=== PATIENT | female | born 1960 | race Caucasian/White ===

== ENCOUNTER → 2024-10-28 | Outpatient (CLI) | payer BC ==
--- NOTE | 2024-10-28 09:37 | CT ---
EXAMINATION TYPE: CT left knee - AMBAR Protocol DATE OF EXAM: 10/28/2024 9:17 AM COMPARISON: None. CLINICAL INDICATION: Female, 64 years old with history of M17.12 UNILATERAL PRIMARY OSTEOARTHRITIS, L EFT KNE; PHH, Pre op planning, pain, TECHNIQUE: Axial images were obtained of the bilateral hips, knee and bilateral ankles: CT left knee - AMBAR Protocol, Additional coronal and sagittal reformatted images and soft tissue and bone window were obtained for review of the bilateral hips, knee and bilateral ankles. Contrast used: mL of , (None if empty) Oral contrast used: (None if empty) CT DLP: 757 mGycm, Automated exposure control for dose reduction was used. FINDINGS: The visualized portion of the hips demonstrate mild osteoarthrosis changes with osteophyte formation of the acetabulum. No acute intrapelvic process. The bony structures of the pelvis are intact. The visualized knee demonstrates osteophyte formation of the tibial plateau, the patella and femoral condyles. There is joint space narrowing and subchondral sclerosis and cystic change. No evidence of fracture. Findings worse in the medial aspect of the knee The visualized ankles demonstrates multifocal osteoarthrosis changes with osteophyte formation and mi ld joint space narrowing. No evidence of fractures. Other: No significant findings. IMPRESSION: Severe osteoarthrosis changes of the left knee. [facility], , 10/28/2024 9:35 AM
== END | disposition home or self-care (01) ==
LOC: RADCTMAIN 08:30
PROVIDERS: ATTEND Orthopaedic Surgery
DX: Z01.818 Encounter for other preprocedural examination (principal); M17.12 Unilateral primary osteoarthritis, left knee

== ENCOUNTER → 2024-11-18 | Outpatient (CLI) | payer BC ==
[2024-11-18 10:53] LABS: INR 0.9 (<1.2)
[2024-11-18 14:46] LABS: HCT 36.2 % (37.2-46.3); HGB 11.1 g/dL (12.0-15.0); MCHC 30.7 g/dL (32.0-37.0); MCV 84.8 FL (80.0-97.0); Mean Platelet Volume 9.8 FL (9.5-12.2); NRBC Per 100 WBC 0 X 10*3/uL (0.00-0.01); Platelet Count 418 X 10*3/uL (140-440); RBC 4.27 X 10*6/uL (4.10-5.20); RDW 14.9 % (11.5-14.5); WBC 9.33 X 10*3/uL (4.50-10.00)
[2024-11-18 14:52] LABS: ALT 11 U/L (8-44); AST 17 U/L (13-35); Albumin 4.1 g/dL (3.8-4.9); Albumin/Globulin Ratio 1.46 Ratio (1.60-3.17); Alkaline Phosphatase 122 U/L (41-126); BUN/Creat Ratio 14.25 Ratio (12.00-20.00); Blood Urea Nitrogen 11.4 mg/dL (9.0-27.0); Calcium 9.3 mg/dL (8.7-10.3); Carbon Dioxide 22.1 mmol/L (21.6-31.8); Chloride 108 mmol/L (96-109); Globulin 2.8 g/dL (1.6-3.3); Glucose 141 mg/dL (70-110); Potassium 4.3 mmol/L (3.5-5.5); Sodium 142 mmol/L (135-145); Total Bilirubin 0.3 mg/dL (0.3-1.2); Total Protein 6.9 g/dL (6.2-8.2)
== END | disposition home or self-care (01) ==
LOC: LABWHC1 10:16
PROVIDERS: ATTEND Orthopaedic Surgery
DX: Z01.818 Encounter for other preprocedural examination (principal); Z22.322 Carrier or suspected carrier of Methicillin resistant Staphylococcus aureus; E11.9 Type 2 diabetes mellitus without complications; M17.12 Unilateral primary osteoarthritis, left knee
CPT/HCPCS: 36415; 80053; 83036; 85027; 85610; 85730; 87070; 93005

== ENCOUNTER 2024-12-03 07:56 | Day surgery (SDC) | payer BC ==
[~2024-12-03 07:56] MED LIST: DOCUSATE 100 MG CAP PO PRN; TRANEXAMIC 1,000 MG/100ML-NACL 1,000 MG in SALINE 1 100ML.BAG IV PRN; TRANEXAMIC 1,000 MG/100ML-NACL 1,000 MG in SALINE 1 100ML.BAG IVPB PRN; oxyCODONE ER 10 MG TAB.ER.12H PO PRN
[2024-12-03] MEDS: IV FLUID CONTINUATION 1,000 ML IV ONE ×2 (08:24)
[2024-12-03 08:39] LABS: Glucose,Whole Blood 112 mg/dL (70-110)
[2024-12-03] MEDS: LACTATED RINGERS 1,000 ML IV SCH (08:47)
[2024-12-03] MEDS: ACETAMINOPHEN TAB 500 MG TAB PO PRN (08:47)
[2024-12-03] MEDS: KETOROLAC 15 MG/ML 1 ML VIAL IVP PRN (08:48)
[2024-12-03] MEDS: DEXAMETHASONE SOD PHOSPHATE 10 MG/ML 1 ML VIAL IV PRN (08:49)
[2024-12-03] MEDS: ONDANSETRON 4 MG/2 ML VIAL IVP PRN (08:49)
[2024-12-03] MEDS: FAMOTIDINE 20 MG/2 ML VIAL IVP PRN (08:49)
[2024-12-03] MEDS: MIDAZOLAM 2 MG/2 ML VIAL IV PRN (08:55)
[2024-12-03] MEDS: fentaNYL (PF) 50 MCG/ML 2 ML AMP IVP PRN (08:55)
[2024-12-03] MEDS ORDERED: HYDROmorphone (PF) 1 MG/ML ONE (09:50)
[2024-12-03] MEDS ORDERED: PROPOFOL 10 MG/ML 20 ML VIAL IV ONE (09:50)
[2024-12-03] MEDS ORDERED: ROPIVACAINE 5 MG/ML 30 ML VIAL ONE (09:50)
[2024-12-03] MEDS ORDERED: NEOSTIGMINE 1 MG/ML 10 ML VIAL ONE (09:50)
[2024-12-03] MEDS ORDERED: LIDOCAINE 1% INJ 10MG/ML (20 ML MDV) ONE (09:50)
[2024-12-03] MEDS ORDERED: DEXAMETHASONE SOD PHOSPHATE 4 MG/ML 1 ML VIAL ONE (09:50)
[2024-12-03] MEDS ORDERED: TRANEXAMIC 1,000 MG/100ML-NACL PREMIX BAG ONE (09:50)
[2024-12-03] MEDS ORDERED: PHENYLEPHRINE-0.9% NACL SYG 1,000 MCG/10 ML SYRINGE ONE (09:50)
[2024-12-03] MEDS ORDERED: SUCCINYLCHOLINE CHLORIDE 200 MG/10 ML VIAL IV ONE (09:50)
[2024-12-03] MEDS ORDERED: MIDAZOLAM 2 MG/2 ML VIAL ONE (09:50)
[2024-12-03] MEDS ORDERED: ROCURONIUM 10 MG/ML (5 ML VIAL) IV ONE (09:50)
[2024-12-03] MEDS ORDERED: GLYCOPYRROLATE 0.2 MG/ML 2 ML VIAL ONE (09:50)
[2024-12-03] MEDS ORDERED: fentaNYL (PF) 50 MCG/ML 2 ML AMP ONE (09:50)
[2024-12-03] MEDS: ceFAZolin 2 GM in DEXTROSE 5% IN WATER 50 ML IVPB PRN (09:55)
--- NOTE | 2024-12-03 09:57 | P.ANPRN ---
Procedure Note - Anesthesia - Nerve Block Performed Left iPack Single Time Out Performed: Yes Date of Procedure: 12/03/24 Procedure Start Time: 08:54 Procedure Stop Time: 08:58 Location of Patient: PreOp Indication: Acute Post-Operative Pain, Analgesia, Requested by Surgeon Sedation Type: Sedate with meaningful contact maintained Preparation: Sterile Prep Position: Right Lateral Catheter: None Needle Types: Pajunk Needle Gauge: 21 Ultrasound used to visualize needle placement: Yes Ultrasound used to observe medication spread: Yes Injectate: 0.5% Ropivacaine (see comment for volume) ([id number]) Blood Aspirated: No Pain Paresthesia on Injection Noted: No Resistance on Injection: Normal Image Stored and Saved: Yes Events: Uneventful and Well Tolerated
--- NOTE | 2024-12-03 09:58 | P.ANPRN ---
Procedure Note - Anesthesia - Nerve Block Performed Left Adductor Canal Single Time Out Performed: Yes Date of Procedure: 12/03/24 Procedure Start Time: 08:58 Procedure Stop Time: 09:03 Location of Patient: PreOp Indication: Acute Post-Operative Pain, Analgesia, Requested by Surgeon Sedation Type: Sedate with meaningful contact maintained Preparation: Sterile Prep Position: Supine Catheter: None Needle Types: Pajunk Ultrasound used to visualize needle placement: Yes Ultrasound used to observe medication spread: Yes Injectate: 2.0% Lidocaine (see comment for volume) ([id number]) Blood Aspirated: No Pain Paresthesia on Injection Noted: No Resistance on Injection: Normal Image Stored and Saved: Yes Events: Uneventful and Well Tolerated
[2024-12-03] MEDS: ROPIVACAINE/EPI/CLONIDINE/KET 50 ML SYRINGE MISCELLANE PRN (10:30)
[2024-12-03] MEDS: LACTATED RINGERS 1,000 ML IV ONE (11:33)
[2024-12-03] MEDS ORDERED: MAGNESIUM HYDROXIDE 2,400 MG/30 ML CUP PO PRN (11:34)
[2024-12-03] MEDS ORDERED: hydrOXYzine pamoate 25 MG CAP PO PRN (11:34)
[2024-12-03] MEDS ORDERED: ONDANSETRON 4 MG/2 ML VIAL IVP PRN (11:34)
[2024-12-03] MEDS ORDERED: bisacodyL 10 MG SUPP RECTAL PRN (11:34)
[2024-12-03] MEDS ORDERED: HYDROmorphone 0.5 MG/0.5 ML SYRINGE IVP PRN ×2 (11:34)
[2024-12-03] MEDS ORDERED: NALOXONE 0.4 MG/ML 1 ML VIAL IV PRN (11:34)
[2024-12-03] MEDS ORDERED: diazePAM 5 MG TAB PO PRN (11:34)
[2024-12-03] MEDS ORDERED: NA PHOS,M-B/NA PHOS,DI-BA 133 ML ENEMA RECTAL PRN (11:34)
--- NOTE | 2024-12-03 11:34 | P.OP ---
Date of Procedure: 12/03/24 Preoperative Diagnosis: Severe left knee osteoarthritis Postoperative Diagnosis: Same Procedure(s) Performed: 1. Left total knee arthroplasty 2. Computer assisted musculoskeletal navigation using CT/MRI images Implants: 1. [place] Triathlon CR Femur Size #2 2. [place] Triathlon [place] Tibial Base Size #2 3. [place] Triathlon CS poly Size #2, 9-mm 4. [place] Triathlon all poly patella, Size #32 Anesthesia: BRADLY, regional Surgeon: Joel Hester [employer] Finance Manager #1: Danny Latham Estimated Blood Loss (ml): 100 IV fluids (ml): 800 Pathology: none sent Condition: stable Disposition: PACU Indications for Procedure: I met with the patient preoperatively in the office setting and discussed treatment of their symptomatic knee arthritis. They failed a long course of nonsurgical treatment and elected to proceed with an elective total knee replacement. I discussed the potential risks and complications at length and gave them ample time to ask questions. Risks discussed included: risks from an esthesia, superficial site surgical infection, acute and/or chronic periprosthetic joint infection, delayed wound healing, drainage, wound necrosis, instability, stiffness, stiffness requiring manipulation and/or revision surgery, damage to local blood vessels or nerves, aseptic loosening of the implants, extensor mechanism issues including disruption, patellar maltracking, avascular necrosis etc., continued or worsened knee pain, generalized dissatisfaction with surgical outcome, need for revision surgery, an inability to regain preinjury level of function, DVT, PE, other medical complications, and possibly loss of life or limb. The patient voiced their understanding that while these are the most common complications other less common complications are possible. They provided both their verbal and written consent to go forward with surgery. Operative Findings: There was severe full-thickness cartilage loss in the medial and patellofemoral compartment. Partial-thickness cartilage loss lateral compartment. Description of Procedure: The patient was identified in preoperative holding and the correct operative extremity was verified and marked with a marker. I reviewed the consent form with the patient at length. All of their questions were answered. The patient was given a block by anesthesia. They were then brought back to the operating room. They were transferred onto the operating room table where a general anesthetic, preoperative antibiotics, and tranexamic acid were administered by anesthesia. A tourniquet was applied to the proximal aspect of the operative extremity. The contralateral extremity was padded under the heel and secured to the operating room table with a nonsterile blue towel and tape. The ipsilateral arm was carefully draped across the patient's chest and secured with a pillow and foam. A post was applied over the lateral aspect of the ipsilateral thigh and a bolster was placed under the ipsilateral foot. I verified that the operative extremity was stable and the knee was flexed to 90. The operative extremity was then placed in a leg robledo, nonsterile drapes were applied, and the extremity was prepped and draped sterilely in the standard sterile fashion. Prior to starting surgery timeout was performed identifying the correct patient, operative extremity, and procedure. The leg was then elevated, exsanguinated with an Esmarch bandage, and the tourniquet was inflated. An anterior midline incision was made sharply with a scalpel. Once I had dissected deep to the superficial fascial layer medial and lateral flaps were elevated. A medial parapatellar arthrotomy was created. Upon opening the knee joint there were diffuse arthritic changes in all 3 compartments. The anterior horn of the medial meniscus were sharply released and a medial release was performed around the posterior medial corner of the knee to facilitate retractor placement. The fat pad was excised with electrocautery. Remnants of the ACL and PCL were then excised from the notch. 4 mm pins were then placed within the incision in the medial distal femur and proximal tibia. Arrays were applied to the pins and I verified they were completely tightened. The knee was then registered with the Spoonity robot and manipulations in implant position were made to balance the knee and opitmize implant position. Using the Merrick robotic saw all cuts were made in accordance with our plan. After all bony fragments had been removed the cuts were verified with the planar probe. The tibia was then subluxed forward and sized. The knee was brought into flexion and a lamina court supervisor was placed to allow removal of the meniscal remnants both medially and laterally as well as posterior osteophytes. Local anesthetic was then infiltrated around the joint capsule. Trial implants were then placed within the knee. Range of motion and collateral ligament tension was then evaluated. Adjustments in implant size and position were then made accordingly. Once the knee was felt to be appropriately balanced the Merrick pins were removed. The patella was then cut, sized, and punched. A trial patellar button was then placed. With the trial components in place, the patella tracked midline. The femur was then drilled and the trial component removed. The trial tibial component was then appropriately rotated, pinned, and prepared for the keel. All trial components were then removed from the knee. The knee was thoroughly irrigated with pulsatile lavage. Cement was prepared via vacuum mixing in a bow l on the back table. Once the cement had reached appropriate consistency, I hand pressurized cement into the tibia and gently impacted the tibial implant into place. Cement was carefully removed from around the tibial tray and the poly liner was tapped into placed, engaging the locking mechanism. The femur was then exposed and cement was hand pressurized into the cut surfaces. The femoral implant was gently tapped into place and cement was carefully removed. A wet lap sponge was used to wipe down the bearing surface of the femur and the knee was extended to further pressurize cement. With the knee extended, cement was pressurized into the cut surface of the patella and the patella button was placed and compressed with a clamp. All extruded cement was removed including from the pin sites. The knee was held in extension until the cement had fully hardened. Once the cement had hardened the knee was evaluated one final time with the final polyethylene liner in place. The knee had full extension and flexion and felt stable to varus and valgus stress throughout the arc of motion. The tourniquet was released and with the tourniquet down the patella tracked midline. All bleeders were controlled with electrocautery. The knee was then soaked for 3 minutes with a dilute Betadine soak. The knee was thoroughly irrigated using 3 L of sterile saline and pulsatile lavage. A deep drain was placed. The extensor mechanism was then reapproximated using pop off Vicryl sutures followed by a running barbed suture. The knee was then closed in layers with a 0 strata fix for the deep fascial layer, 2-0 strata fix for the superficial subcutaneous layer and Monocryl and Steri-Strips for the skin. A sterile dressing and drain sponge were applied. I verified that all instrument, sponge, and sharp counts were correct. The patient was then transferred off the operating room table, extubated, and brought to recovery having tolerated the procedure well. Danny Latham PA-C was required as a skilled hospital clinic assistant due to the complexity of surgery for patient positioning, draping, exposure, retraction, closure of wound and application of dressing. PLAN: The patient can weight-bear as tolerated on the operative extremity. DVT prophylaxis with aspirin 81 mg twice a day based on preoperative risk stratification. Follow-up in the office in 2 weeks for wound check and x-rays of the knee including an AP and lateral.
--- NOTE | 2024-12-03 13:03 | XR ---
EXAMINATION TYPE: XR knee limited LT DATE OF EXAM: 12/03/2024 12:34 PM COMPARISON: CT CLINICAL INDICATION: Female, 64 years old with history of Evaluation for Postop abnormality and align ment; PHH, pain TECHNIQUE: XR knee limited LT 2 views submitted. FINDINGS: Status post total knee arthroplasty changes with hardware in appropriate alignment and in tact. No evidence of fracture. Subcutaneous lucencies and lucencies within the joint consistent with surgical changes. IMPRESSION: Status post total knee arthroplasty changes with hardware intact and appropriate alignment. No fractu res identified. [facility], , 12/03/2024 1:01 PM
[2024-12-03] MEDS: HYDROmorphone 0.5 MG/0.5 ML SYRINGE IVP PRN ×2 (13:40→17:22)
[2024-12-03 14:12] LABS: Glucose,Whole Blood 163 mg/dL (70-110)
[2024-12-03] MEDS: SODIUM CHLORIDE 0.9% 1,000 ML IV SCH (15:06)
[2024-12-03] MEDS ORDERED: DEXTROSE 50% SYRINGE 50 ML IVP PRN ×4 (15:06→21:15)
[2024-12-03] MEDS ORDERED: ALBUTEROL NEBULIZED 2.5 MG/3 ML INHALATION PRN (16:18)
[2024-12-03] MEDS ORDERED: CHOLESTYRAMINE (WITH SUGAR) 4 GM PACKET PO PRN (16:18)
[2024-12-03] MEDS ORDERED: FLUTICASONE NASAL 50MCG/SPRAY 16GM BTL NASAL PRN (16:18)
[2024-12-03] MEDS ORDERED: ALPRAZolam 0.5 MG TAB PO PRN (16:18)
[2024-12-03] MEDS ORDERED: PANTOPRAZOLE 40 MG TABLET PO PRN (16:22)
[2024-12-03 16:47] LABS: Glucose,Whole Blood 205 mg/dL (70-110)
[2024-12-03] MEDS: INSULIN LISPRO (HumaLOG) 100 UNIT/ML 10 mL VL SQ SCH (17:11)
[2024-12-03] MEDS: ceFAZolin 2 GM in DEXTROSE 5% IN WATER 50 ML IVPB SCH (17:12)
[2024-12-03] MEDS ORDERED: ceFAZolin 2 GM in DEXTROSE 50%-WATER VIAL 50 ML IVPB SCH (18:00)
[2024-12-03] MEDS: HYDROcodone/APAP 5-325MG 1 EACH TAB PO PRN (18:57)
[2024-12-03 20:30] LABS: Glucose,Whole Blood 191 mg/dL (70-110)
[2024-12-03] MEDS: ASPIRIN 81 MG PO SCH (20:53)
[2024-12-03] MEDS: SENNOSIDES-DOCUSATE SODIUM 1 EACH TAB PO SCH (20:59)
[2024-12-03] MEDS ORDERED: TEMAZEPAM 15 MG CAP PO PRN (21:00)
[2024-12-03] MEDS: metFORMIN 500 MG TAB PO SCH (21:05)
--- NOTE | 2024-12-03 21:16 | P.CONS ---
History of Present Illness - Reason for Consult Consult date: 12/03/24 Medical management Requesting physician: Joel Hester - Chief Complaint Left knee replaced - History of Present Illness Pleasant 64-year-old patient who follows with Viktoriya Solano. Chronic medical conditions include asthma, diabetes, GERD, hypertension, hyperlipidemia, peripheral neuropathy. Urine incontinence. Anxiety depression. She takes her diabetic medications intermittently. Patient has undergone left total knee arthroplasty. Pain is controlled. No nausea vomiting. Denies any cardiac history. Review of systems: GEN.: None EYES: None HEENT: None NECK: None RESPIRATORY: None CARDIOVASCULAR: None GASTROINTESTINAL: None GENITOURINARY: [Urine incontinence MUSCULOSKELETAL: Joint pains LYMPHATICS: None HEMATOLOGICAL: None PSYCHIATRY: None NEUROLOGICAL: None Social history: Lives with her boyfriend Cole who is a semi truck driver. Denies any smoking alcohol Physical examination: VITAL SIGNS: 97.8, 96, 17, 120 x 60, 97% room air GENERAL: BMI 29.2, lying bed awake comfortable. EYES: Pupils equal. Conjunctiva sincere l. HEENT: External appearance of nose and ears normal, oral cavity grossly normal. NECK: JVD not raised; masses not palpable. HEART: First and second heart sounds are normal; no edema. LUNGS: Respiratory rate normal; clear to auscultation. ABDOMEN: Soft, nontender, liver spleen not palpable, no masses palpable. PSYCH: Alert and oriented x3; mood and affect sincere l. MUSCULOSKELETAL:No Clubbing/cyanosis;muscles-grossly intact. Optifahl dressing over the incision site left knee.. Avoidance of other joints NEUROLOGICAL: Cranial nerves grossly intact; no facial asymmetry, power and sensation grossly intact. LYMPHATICS: No lymph nodes palpable in the axilla and neck INVESTIGATIONS, reviewed in the clinical context: December 19, 2024: White count 9.3 hemoglobin 11.1 platelets 418 sodium 142 potassium 4.3 creatinine 0.8 Assessment plan: - Left total knee arthroplasty. Aspirin for DVT prophylaxis. IV cefazolin for infection prophylaxis. - Primary osteoarthritis of multiple joints Use Tylenol as needed - GERD Prilosec - Depression anxiety Cymbalta Xanax - Diabetes mellitus type 2 on oral hypoglycemic Metformin. Diabetic diet follow Accu-Cheks - Hyperlipidemia Lipitor - Peripheral neuropathy Neurontin Care was discussed with patient. Questions answered. Thank you Dr. Hester Past Medical History Past Medical History: Asthma, Diabetes Mellitus, GERD/Reflux, Hyperlipidemia, Hypertension, Osteoarthritis (OA) Additional Past Medical History / Comment(s): Type II DM, sinus allergies, neuropathy, urine leakage History of Any Multi-Drug Resistant Organisms: None Reported Past Surgical History: Cholecystectomy Additional Past Surgical History / Comment(s): Left total knee. Past Anesthesia/Blood Transfusion Reactions: No Reported Reaction Past Psychological History: Anxiety, Depression Smoking Status: Never smoker Past Alcohol Use History: Rare Past Drug Use History: None Reported - Past Family History Father Family Medical History: Myocardial Infarction ([place]) Additional Family Medical History / Comment(s): age 61 Medications and Allergies Home Medications Medication Instructions Recorded Confirmed Type ALPRAZolam [Xanax] 0.5 mg PO TID PRN 11/30/24 12/03/24 History Acetaminophen Tab [Tylenol] 1,000 mg PO Q6H PRN 11/30/24 12/03/24 History Albuterol Inhaler [Ventolin Hfa 1 - 2 puff INHALATION Q6H PRN 11/30/24 12/03/24 History Inhaler] Atorvastatin [Lipitor] 10 mg PO DAILY 11/30/24 12/03/24 History Cholecalciferol [Vitamin D3 (10 10 mcg PO DAILY 11/30/24 12/03/24 History Mcg = 400 Iu)] Cholestyramine (with Sugar) 1 dose PO TID PRN 11/30/24 12/03/24 History [Cholestyramine Powder] Cyanocobalamin [Vitamin B-12] 1 tab PO DAILY 11/30/24 12/03/24 History Cyclobenzaprine [Flexeril] 5 mg PO HS 11/30/24 12/03/24 History DULoxetine HCL [Cymbalta] 90 mg PO DAILY 11/30/24 12/03/24 History Diclofenac Sodium Gel [Voltaren 1% 1 dose TOPICAL DIRECTED PRN 11/30/24 12/03/24 History Gel] Fluticasone Nasal [place] [Flonase 1 inh INHALATION BID PRN 11/30/24 12/03/24 History Nasal [place]] Gabapentin [Neurontin] 100 mg PO TID 11/30/24 12/03/24 History HYDROcodone/APAP 5-325MG [[place] 1 tab PO Q6HR PRN 11/30/24 12/03/24 History 5-325] Ibuprofen [Motrin] 800 mg PO Q6H PRN 11/30/24 12/03/24 History Ketoconazole 2% Cream [Nizoral 2%] 1 dose TOPICAL BID 11/30/24 12/03/24 History Loratadine [Claritin] 10 mg PO DAILY 11/30/24 12/03/24 History Losartan Potassium 100 mg PO DAILY 11/30/24 12/03/24 History Multivitamin [Multivitamins Adult 1 tab PO DAILY 11/30/24 12/03/24 History Gummies] Omeprazole [PriLOSEC] 40 mg PO DAILY PRN 11/30/24 12/03/24 History metFORMIN HCL [Glucophage] 500 mg PO BID 11/30/24 12/03/24 History oxyBUTYnin chloride [oxyBUTYnin 5 mg PO DAILY 11/30/24 12/03/24 History chloride ER] traMADol HCL 50 mg PO Q6H 11/30/24 12/03/24 History Aspirin 81 mg PO BID #60 tab 12/03/24 Rx Diclofenac Sodium [Voltaren] 75 mg PO BID #60 tab 12/03/24 Rx Docusate [Colace] 100 mg PO BID #60 capsule 12/03/24 Rx HYDROcodone/APAP 10-325MG [[place] 1 tab PO Q6HR PRN 7 Days #32 tab 12/03/24 Rx 10-325] Omeprazole [PriLOSEC] 40 mg PO DAILY #30 cap 12/03/24 Rx diazePAM [Valium] 5 mg PO Q8HR PRN 3 Days #15 tab 12/03/24 Rx Allergies Allergy/AdvReac Type Severity Reaction Status Date / Time CAT FISH Allergy Nausea & Uncoded 12/03/24 08:47 Vomiting & Diarrhea Physical Exam Vitals: Vital Signs Temp Pulse Pulse Resp BP Pulse Ox 12/03/24 20:00 97.8 F 96 17 120/69 97 12/03/24 15:06 97.6 F 86 16 156/90 94 L 12/03/24 14:40 78 18 135/73 97 12/03/24 14:14 86 16 137/69 95 12/03/24 13:54 98 18 140/84 92 L 12/03/24 13:30 73 16 136/81 96 12/03/24 13:15 86 16 165/79 96 12/03/24 13:00 96 16 169/81 98 12/03/24 12:45 102 H 18 166/81 100 12/03/24 12:30 101 H 16 168/87 100 12/03/24 12:15 97.3 F L 110 H 14 165/89 99 12/03/24 09:24 75 16 136/75 96 12/03/24 09:11 73 16 126/61 97 12/03/24 08:30 97.6 F 80 14 141/82 97 Intake and Output 12/03/24 12/03/24 12/03/24 06:59 14:59 22:59 Intake Total 1500 Output Total 100 Balance 1400 Intake: IV 1500 Output: Estimated Blood Loss 100 Other: # Voids 1 Weight 77.1 kg 77.1 kg Results Labs: Abnormal Lab Results - Last 24 Hours (Table) 12/03/24 12/03/24 12/03/24 Range/Units 08:36 14:10 16:46 POC Glucose (mg/dL) 112 H 163 H 205 H (70-110) mg/dL 12/03/24 Range/Units 20:29 POC Glucose (mg/dL) 191 H (70-110) mg/dL
[2024-12-03] MEDS: GABAPENTIN 100 MG CAP PO SCH (22:45)
[2024-12-04] MEDS: HYDROcodone/APAP 10-325MG 1 EACH TAB PO PRN (02:06)
[2024-12-04 06:15] LABS: Glucose,Whole Blood 130 mg/dL (70-110)
[2024-12-04 07:15] VITALS: BP 184/90; PULSE 106; RESP 17; TEMP 98.8
[2024-12-04] MEDS: CYANOCOBALAMIN 500 MCG TAB PO SCH (08:15)
[2024-12-04] MEDS: OXYBUTYNIN XL 5 MG TAB.ER.24 PO SCH (08:15)
[2024-12-04] MEDS: MULTIVITAMINS, THERA 1 EACH TAB PO SCH (08:15)
[2024-12-04] MEDS: LOSARTAN 50 MG TAB PO SCH (08:15)
[2024-12-04] MEDS: LORATADINE 10 MG TAB PO SCH (08:15)
[2024-12-04] MEDS: DULoxetine HCL 30 MG CAPSULE.DR PO SCH (08:16)
[2024-12-04] MEDS: CHOLECALCIFEROL 10 MCG (400 IU) TABLET PO SCH (08:16)
[2024-12-04] MEDS: ATORVASTATIN 10 MG TAB PO SCH (08:16)
--- NOTE | 2024-12-04 09:22 | P.DS ---
Providers Date of admission: 12/04/2024 Attending physician: Joel Hester Consults: 12/03/24 11:34 Consult Physician Routine Consulting Provider: Blaise Mckeon Consult Reason/Comments: post op medical management Do you want consulting provider notified?: Yes Primary care physician: Viktoriya Solano Hospital Course: The patient is a very pleasant 64-year-old female who was admitted under my care yesterday after an uncomplicated total knee replacement. She received 2 doses of postoperative antibiotics. She was started on aspirin for DVT prophylaxis. She was seen on postoperative day #1 and was doing well. She had some pain in her knee but was comfortable with pain medications. She worked with therapy and did well. Her dressing over the knee was intact with no drainage or strikethrough. Femoral nerve function was intact. She was able to actively plantarflex and dorsiflex her ankle and her toes. Internal medicine was consulted and assisted with perioperative medical management. The patient did well and was ultimately cleared for discharge home. Patient Condition at Discharge: Good Plan - Discharge Summary Discharge Rx Participant: No New Discharge Prescriptions: New HYDROcodone/APAP 10-325MG [Banner 10-325] 1 tab PO Q6HR PRN 7 Days #32 tab PRN Reason: Pain Aspirin 81 mg PO BID #60 tab Docusate [Colace] 100 mg PO BID #60 capsule Omeprazole [PriLOSEC] 40 mg PO DAILY #30 cap diazePAM [Valium] 5 mg PO Q8HR PRN 3 Days #15 tab PRN Reason: Spasms Diclofenac Sodium [Voltaren] 75 mg PO BID #60 tab No Action traMADol HCL 50 mg PO Q6H metFORMIN HCL [Glucophage] 500 mg PO BID Omeprazole [PriLOSEC] 40 mg PO DAILY PRN PRN Reason: Heartburn Multivitamin [Multivitamins Adult Gummies] 1 tab PO DAILY Losartan Potassium 100 mg PO DAILY Loratadine [Claritin] 10 mg PO DAILY Gabapentin [Neurontin] 100 mg PO TID Fluticasone Nasal [place] [Flonase Nasal [place]] 1 inh INHALATION BID PRN PRN Reason: Congestion DULoxetine HCL [Cymbalta] 90 mg PO DAILY Cyclobenzaprine [Flexeril] 5 mg PO HS Cyanocobalamin [Vitamin B-12] 1 tab PO DAILY Atorvastatin [Lipitor] 10 mg PO DAILY Albuterol Inhaler [Ventolin Hfa Inhaler] 1 - 2 puff INHALATION Q6H PRN PRN Reason: Shortness Of Breath Acetaminophen Tab [Tylenol] 1,000 mg PO Q6H PRN PRN Reason: Pain HYDROcodone/APAP 5-325MG [Banner 5-325] 1 tab PO Q6HR PRN PRN Reason: Pain oxyBUTYnin chloride [oxyBUTYnin chloride ER] 5 mg PO DAILY Ketoconazole 2% Cream [Nizoral 2%] 1 dose TOPICAL BID Ibuprofen [Motrin] 800 mg PO Q6H PRN PRN Reason: Pain Diclofenac Sodium Gel [Voltaren 1% Gel] 1 dose TOPICAL DIRECTED PRN PRN Reason: Pain Cholestyramine (with Sugar) [Cholestyramine Powder] 1 dose PO TID PRN PRN Reason: Diarrhea Cholecalciferol [Vitamin D3 (10 Mcg = 400 Iu)] 10 mcg PO DAILY ALPRAZolam [Xanax] 0.5 mg PO TID PRN PRN Reason: Anxiety Discharge Medication List ALPRAZolam [Xanax] 0.5 mg PO TID PRN 11/30/24 [History] Acetaminophen Tab [Tylenol] 1,000 mg PO Q6H PRN 11/30/24 [History] Albuterol Inhaler [Ventolin Hfa Inhaler] 1 - 2 puff INHALATION Q6H PRN 11/30/24 [History] Atorvastatin [Lipitor] 10 mg PO DAILY 11/30/24 [History] Cholecalciferol [Vitamin D3 (10 Mcg = 400 Iu)] 10 mcg PO DAILY 11/30/24 [History] Cholestyramine (with Sugar) [Cholestyramine Powder] 1 dose PO TID PRN 11/30/24 [History] Cyanocobalamin [Vitamin B-12] 1 tab PO DAILY 11/30/24 [History] Cyclobenzaprine [Flexeril] 5 mg PO HS 11/30/24 [History] DULoxetine HCL [Cymbalta] 90 mg PO DAILY 11/30/24 [History] Diclofenac Sodium Gel [Voltaren 1% Gel] 1 dose TOPICAL DIRECTED PRN 11/30/24 [History] Fluticasone Nasal [place] [Flonase Nasal [place]] 1 inh INHALATION BID PRN 11/30/24 [History] Gabapentin [Neurontin] 100 mg PO TID 11/30/24 [History] HYDROcodone/APAP 5-325MG [Banner 5-325] 1 tab PO Q6HR PRN 11/30/24 [History] Ibuprofen [Motrin] 800 mg PO Q6H PRN 11/30/24 [History] Ketoconazole 2% Cream [Nizoral 2%] 1 dose TOPICAL BID 11/30/24 [History] Loratadine [Claritin] 10 mg PO DAILY 11/30/24 [History] Losartan Potassium 100 mg PO DAILY 11/30/24 [History] Multivitamin [Multivitamins Adult Gummies] 1 tab PO DAILY 11/30/24 [History] Omeprazole [PriLOSEC] 40 mg PO DAILY PRN 11/30/24 [History] metFORMIN HCL [Glucophage] 500 mg PO BID 11/30/24 [History] oxyBUTYnin chloride [oxyBUTYnin chloride ER] 5 mg PO DAILY 11/30/24 [History] traMADol HCL 50 mg PO Q6H 11/30/24 [History] Aspirin 81 mg PO BID #60 tab 12/03/24 [Rx] Diclofenac Sodium [Voltaren] 75 mg PO BID #60 tab 12/03/24 [Rx] Docusate [Colace] 100 mg PO BID #60 capsule 12/03/24 [Rx] HYDROcodone/APAP 10-325MG [Banner 10-325] 1 tab PO Q6HR PRN 7 Days #32 tab 12/03/24 [Rx] Omeprazole [PriLOSEC] 40 mg PO DAILY #30 cap 12/03/24 [Rx] diazePAM [Valium] 5 mg PO Q8HR PRN 3 Days #15 tab 12/03/24 [Rx] Follow up Appointment(s)/Referral(s): Joel eHster MD [Medical Doctor] - 2 Weeks Activity/Diet/Wound Care/Special Instructions: 1. Weight-bear as tolerated on your operative extremity unless instructed otherwise. Use a walker or other assistive device to ambulate. 2. Leave surgical dressing in place. If your dressing becomes saturated with blood, there is drainage, or the dressing becomes loose please contact the office. 3. It is okay to shower with your surgical dressing, but do not submerge in water (no hot tubs, bath's, swimming etc.) 4. Make sure to take her blood clot prevention medication as prescribed (aspirin, Eliquis, Xarelto, and Plavix are commonly prescribed medications for blood clot prevention) 5. While taking Banner or Percocet for pain make sure you're taking a stool softener (Colace) and drink lots of water. 6. Keep all follow-up appointments as scheduled. You will usually be seen in 1-2 weeks following surgery. 7. Please contact the office with any questions or concerns [phone] Discharge Disposition: HOME WITH HOME HEALTH SERVICES
[2024-12-04 09:30] LABS: HCT 29.9 % (37.2-46.3); HGB 9.3 g/dL (12.0-15.0); Lymphocytes % (A) 7.3 %; MCH 26.1 pg (27.0-32.0); MCHC 31.1 g/dL (32.0-37.0); Mean Platelet Volume 9.6 FL (9.5-12.2); Monocytes % (A) 7.2 %; NRBC Per 100 WBC 0 X 10*3/uL (0.00-0.01); Platelet Count 350 X 10*3/uL (140-440); RBC 3.56 X 10*6/uL (4.10-5.20); RDW 14.6 % (11.5-14.5); WBC 18.84 X 10*3/uL (4.50-10.00)
[2024-12-04 09:31] LABS: Basophils # (A) 0.02 X 10*3/uL (0.00-0.10); Basophils % (A) 0.1 %; Eosinophils # (A) 0 X 10*3/uL (0.04-0.35); Eosinophils % (A) 0 %; Lymphocytes # (A) 1.38 X 10*3/uL (0.90-5.00); Monocytes # (A) 1.36 X 10*3/uL (0.20-1.00)
[2024-12-04] MEDS: diazePAM 5 MG TAB PO PRN (09:59)
[2024-12-04 11:06] LABS: Glucose,Whole Blood 134 mg/dL (70-110)
[2024-12-04] MEDS: ACETAMINOPHEN TAB 500 MG TAB PO PRN (13:08)
--- NOTE | 2024-12-04 19:19 | P.PN ---
Progress Note - Text Progress Note Date: 12/04/24 - Chief Complaint Left knee replaced - History of Present Illness Pleasant 64-year-old patient who follows with Viktoriya Solano. Chronic medical conditions include asthma, diabetes, GERD, hypertension, hyperlipidemia, peripheral neuropathy. Urine incontinence. Anxiety depression. She takes her diabetic medications intermittently. Patient has undergone left total knee arthroplasty. Pain is controlled. No nausea vomiting. Denies any cardiac history. December 04: Doing well. Ambulating. Pain controlled. Prescribed iron for blood loss anemia. Patient advised to check her blood pressure every day in the morning. Blood pressure recorded this morning high as patient is in pain. She will follow-up with a log of the blood pressure numbers with the PCP. Social history: Lives with her boyfriend Cole who is a team otr truck driver. Denies any smoking alcohol Physical examination: VITAL SIGNS: 98.8, 106, 17, 184/90, 96% room GENERAL: BMI 29.2, up in recliner, comfortable EYES: Pupils equal. Conjunctiva sincere l. HEENT: External appearance of nose and ears normal, oral cavity grossly normal. NECK: JVD not raised; masses not palpable. HEART: First and second heart sounds are normal; no edema. LUNGS: Respiratory rate normal; clear to auscultation. ABDOMEN: Soft, nontender, liver spleen not palpable, no masses palpable. PSYCH: Alert and oriented x3; mood and affect sincere l. MUSCULOSKELETAL:No Clubbing/cyanosis;muscles-grossly intact. OA of joint INVESTIGATIONS, reviewed in the clinical context: December 04: White count 18.8. Hemoglobin 9.3 December 19, 2024: White count 9.3 hemoglobin 11.1 platelets 418 sodium 142 potassium 4.3 creatinine 0.8 Assessment plan: - Left total knee arthroplasty. Aspirin for DVT prophylaxis. IV cefazolin for infection prophylaxis. - Primary osteoarthritis of multiple joints Use Tylenol as needed - Acute postprocedural anemia, expected from surgery Ferrous sulfate added - GERD Prilosec - Blood pressure recording high likely from pain. Patient does have significant pain. Patient to check him blood pressure reading every morning. Then take it to his PCP this coming week. - Depression anxiety Cymbalta Xanax - Diabetes mellitus type 2 on oral hypoglycemic Metformin. Diabetic diet follow Accu-Cheks - Hyperlipidemia Lipitor - Peripheral neuropathy Neurontin Discussed with patient. Thank you Dr. Hester Past Medical History Past Medical History: Asthma, Diabetes Mellitus, GERD/Reflux, Hyperlipidemia, Hypertension, Osteoarthritis (OA) Additional Past Medical History / Comment(s): Type II DM, sinus allergies, neuropathy, urine leakage History of Any Multi-Drug Resistant Organisms: None Reported Past Surgical History: Cholecystectomy Additional Past Surgical History / Comment(s): Left total knee. Past Anesthesia/Blood Transfusion Reactions: No Reported Reaction Past Psychological History: Anxiety, Depression Smoking Status: Never smoker Past Alcohol Use History: Rare Past Drug Use History: None Reported
== END 2024-12-04 13:45 | disposition home health service (06) ==
LOC: OR 07:56 → 4SSUR 11:55 → OR 12-04 13:45
PROVIDERS: ATTEND Orthopaedic Surgery
DX: M17.12 Unilateral primary osteoarthritis, left knee (principal); D62 Acute posthemorrhagic anemia; E78.5 Hyperlipidemia, unspecified; F41.8 Other specified anxiety disorders; G89.18 Other acute postprocedural pain; I10 Essential (primary) hypertension; J45.909 Unspecified asthma, uncomplicated; E11.40 Type 2 diabetes mellitus with diabetic neuropathy, unspecified; K21.9 Gastro-esophageal reflux disease without esophagitis; F32.A Depression, unspecified; F41.9 Anxiety disorder, unspecified; Z79.82 Long term (current) use of aspirin; Z79.84 Long term (current) use of oral hypoglycemic drugs; Z79.899 Other long term (current) drug therapy; Z90.49 Acquired absence of other specified parts of digestive tract; Z79.1 Long term (current) use of non-steroidal anti-inflammatories (NSAID)
CPT/HCPCS: 0055T; 27447; 64447; 64473; 83036; 85025